=== PATIENT | male | born 1960 | race Caucasian/White ===

== ENCOUNTER 2018-05-04 15:08 | Observation (INO) ==
--- NOTE | 2018-05-04 17:20 | ED ---
HPI General Chief complaint: Chest Pain Stated complaint: Pateint states chest pain Time Seen by Provider: 05/04/18 16:59 History of Present Illness HPI narrative: 57-year-old male with a history of CVA x2, hypertension presents to the emergency department for evaluation of chest pain. Patient states he has had pain in his left anterior lower chest intermittently for the past 2 days. States that he has also had some slight shortness of breath. States he also has had some epigastric pain intermittently, states he has a history of gastric ulcers in the past. He does admit to drinking alcohol regularly. Denies drug use. He denies any history of heart disease or SD but states he used to see a novelty dipper when he lived in [place]. He states that he has lived here in [place] for the past year, just recently got insurance, is not established with a local physician. Denies any fever, chills, nausea, vomiting, lightheadedness, dizziness, weakness, abdominal pain, swelling of the extremities. No other complaints. Related Data Home Medications Medication Instructions Recorded Confirmed No Known Home Medications 05/04/18 05/04/18 Allergies Allergy/AdvReac Type Severity Reaction Status Date / Time No Known Allergies Allergy Verified 05/04/18 15:16 Review of Systems ROS: all other systems reviewed are negative PMFSH Medical History Medical History HBP (high blood pressure) (Acute) Heart attack (Acute) Stroke (Acute) Surgical History Surgical History History of abdominal surgery (Acute) Social History Social History Substance History: No History of Abuse Second Hand Smoke Exposure: Yes Smoking Status: Current every day smoker Tobacco Type: Cigarettes How Often Do You Have a Drink Containing Alcohol: 4 or more times a week Recent Travel in [facility] within the Last 8 Weeks: No Recent Out of Country Travel within the Last 8 Weeks: No Immunization History Tetanus Immunization: >5 Years Exam Narrative Exam Narrative: GENERAL: Well-nourished and well-developed pleasant patient in no acute distress who is nontoxic appearing. SKIN: Warm and dry. HEAD: Normocephalic and atraumatic. EYES: No injection, drainage, or hyphema noted. PERRLA. EOMI. ENT: No nasal drainage noted. Oropharynx is clear. NECK: Supple and the trachea is midline. CARDIOVASCULAR: Regular rate and rhythm. RESPIRATORY: Breath sounds are equal bilaterally with no accessory muscle use, wheezing, rhonchi, or crackles. GASTROINTESTINAL: Abdomen is soft, non-tender, and nondistended. No hepatosplenomegaly. MUSCULOSKELETAL: No obvious deformities, swelling, cyanosis, or ecchymosis is present throughout the upper and lower extremities. Patient has full range of motion without any signs of neurovascular compromise. Distal pulses are 2+ throughout. NEUROLOGICAL: Awake, alert, and oriented. Normal speech and gait. Cranial nerves are grossly intact. Course Initial Documented Vital Signs Temperature 98.7 F 05/04/18 15:10 Pulse Rate 98 H 05/04/18 15:10 Respiratory Rate 20 05/04/18 15:10 Blood Pressure 194/108 H 05/04/18 15:10 Pulse Oximetry 98 05/04/18 15:10 Last Documented Vital Signs Temperature 97.9 F 05/04/18 17:15 Pulse Rate 78 05/04/18 17:15 Respiratory Rate 17 05/04/18 17:55 Blood Pressure 141/88 H 05/04/18 17:15 Pulse Oximetry 97 05/04/18 17:15 Medical Decision Making [facility] Narrative Medical decision making narrative: 57-year-old male presents to the emergency department for evaluation of intermittent chest pain for 2 days. Patient is afebrile, blood pressure is elevated at 203/106. Otherwise vital signs are unremarkable. IV access is obtained, labs been drawn and sent. Patient is placed on cardiac telemetry and pulse oximetry monitoring. EKG shows sinus rhythm with no acute ST elevations or depressions, PVC noted. Patient administered nitro and aspirin. CBC is unremarkable. Coags are unremarkable. CMP is unremarkable. Troponin is less than 0.02. EtOH is less than 3. Chest x-ray is negative. Patient reassessed and states he is no longer having chest pain. Blood pressure improved to 165/90. Patient will be kept in chest pain center under observation. Medical Screen Exam Complete: Yes Emergency Medical Condition: Yes Differential Diagnosis Differential Diagnosis: Hypertensive urgency versus ACS versus pleurisy Lab Data Result diagrams: 05/04/18 17:10 05/04/18 17:10 Lab Results 05/04/18 05/04/18 05/04/18 Range/Units 17:10 17:10 17:10 WBC 9.9 (4.0-11.0) th/mm3 RBC 5.07 (4.50-5.90) mil/mm3 Hgb 17.0 (13.0-17.0) gm/dL Hct 50.4 (39.0-51.0) % MCV 99.3 (80.0-100.0) fL MCH 33.5 (27.0-34.0) pg MCHC 33.8 (32.0-36.0) % RDW 14.0 (11.6-17.2) % Plt Count 158 (150-450) th/mm3 MPV 9.6 (7.0-11.0) fL Neut % (Auto) 70.0 (16.0-70.0) % Lymph % (Auto) 20.0 (9.0-44.0) % [place] % (Auto) 7.1 (0.0-8.0) % Eos % (Auto) 2.5 (0.0-4.0) % Baso % (Auto) 0.4 (0.0-2.0) % Neut # (Auto) 7.0 (1.8-7.7) th/mm3 Lymph # (Auto) 2.0 (1.0-4.8) th/mm3 [place] # (Auto) 0.7 (0.0-0.9) th/mm3 Eos # (Auto) 0.2 (0.0-0.4) th/mm3 Baso # (Auto) 0.0 (0.0-0.2) th/mm3 WBC Differential . Differential Comment Auto diff final PT 9.9 (9.8-11.6) sec INR 1.0 Ratio APTT 28.3 (23.4-31.7) sec Sodium 138 (136-145) meq/L Potassium 4.3 (3.5-5.1) meq/L Chloride 100 (98-107) meq/L Carbon Dioxide 29.2 (21.0-32.0) meq/L Anion Gap 9 (5-15) meq/L BUN 22 H (7-18) mg/dL Creatinine 0.95 (0.60-1.30) mg/dL Estimated GFR 82 L (>89) mL/min Random Glucose 87 (74-106) mg/dL Calcium 8.8 (8.5-10.1) mg/dL Magnesium 2.2 (1.5-2.5) mg/dL Total Bilirubin 0.5 (0.2-1.0) mg/dL AST 20 (15-37) U/L ALT 16 (12-78) U/L Alkaline Phosphatase 92 (45-117) U/L Troponin I Less than 0.02 L (0.02-0.05) ng/mL Total Protein 7.8 (6.4-8.2) g/dL Albumin 3.7 (3.4-5.0) g/dL Lipase 73 (73-393) U/L Serum Alcohol Less than 3 (0-5) mg/dL 05/04/18 Range/Units 17:10 WBC (4.0-11.0) th/mm3 RBC (4.50-5.90) mil/mm3 Hgb (13.0-17.0) gm/dL Hct (39.0-51.0) % MCV (80.0-100.0) fL MCH (27.0-34.0) pg MCHC (32.0-36.0) % RDW (11.6-17.2) % Plt Count (150-450) th/mm3 MPV (7.0-11.0) fL Neut % (Auto) (16.0-70.0) % Lymph % (Auto) (9.0-44.0) % [place] % (Auto) (0.0-8.0) % Eos % (Auto) (0.0-4.0) % Baso % (Auto) (0.0-2.0) % Neut # (Auto) (1.8-7.7) th/mm3 Lymph # (Auto) (1.0-4.8) th/mm3 [place] # (Auto) (0.0-0.9) th/mm3 Eos # (Auto) (0.0-0.4) th/mm3 Baso # (Auto) (0.0-0.2) th/mm3 WBC Differential Differential Comment PT (9.8-11.6) sec INR Ratio APTT (23.4-31.7) sec Sodium (136-145) meq/L Potassium (3.5-5.1) meq/L Chloride (98-107) meq/L Carbon Dioxide (21.0-32.0) meq/L Anion Gap (5-15) meq/L BUN (7-18) mg/dL Creatinine (0.60-1.30) mg/dL Estimated GFR (>89) mL/min Random Glucose (74-106) mg/dL Calcium (8.5-10.1) mg/dL Magnesium (1.5-2.5) mg/dL Total Bilirubin (0.2-1.0) mg/dL AST (15-37) U/L ALT (12-78) U/L Alkaline Phosphatase (45-117) U/L Troponin I (0.02-0.05) ng/mL Total Protein (6.4-8.2) g/dL Albumin (3.4-5.0) g/dL Lipase Cancelled (73-393) U/L Serum Alcohol (0-5) mg/dL Imaging Data Radiologist's impression: Chest X-Ray 05/04/18 17:15 CONCLUSION: Negative examination. Discharge Plan Discharge Disposition Patient Disposition: 30 Still Patient Discharge Details Diagnosis: Chest pain Physicians Team ED Provider: Jamir Packer ED Midlevel Provider: Edith Miller Primary Care Provider: Primary Care Frances Zheng Rxs /Orders / Referrals /Forms Prescriptions: No Action No Known Home Medications RF: 0 Discharge Instructions Patient Printed Instructions: Chest Pain (ED) Discharge Interventions Interventions: Vital Signs Last Done: 05/04/18 19:16 Status ED Status: With Doctor
--- NOTE | 2018-05-04 17:36 | XR ---
EXAM DATE: 05/04/2018 5:34 PM EST AGE/SEX: 57 years / Male INDICATIONS: Left anterior lateral chest pain, denies injury CLINICAL DATA: This is the patient's initial encounter. Patient reports that signs and symptoms have been present for 3 days and indicates a pain score of 6/10. MEDICAL/SURGICAL HISTORY: None. None. COMPARISON: No prior exams available for comparison. FINDINGS: A single AP view of the chest demonstrates the lungs to be symmetrically aerated without evidence of mass, infiltrate or effusion. The cardiomediastinal contours are unremarkable. Osseous structures a re intact. CONCLUSION: Negative examination. Electronically signed by: Chaitanya Baker MD 05/04/2018 5:34 PM EST
[2018-05-04 18:08] LABS: Baso % (Auto) 0.4 % (0.0-2.0); Eos # (Auto) 0.2 th/mm3 (0.0-0.4); Eos % (Auto) 2.5 % (0.0-4.0); Hematocrit 50.4 % (39.0-51.0); Mean Corpuscular HGB Conc 33.8 % (32.0-36.0); Mean Corpuscular Hemoglobin 33.5 pg (27.0-34.0); Mean Corpuscular Volume 99.3 fL (80.0-100.0); Mean Platelet Volume 9.6 fL (7.0-11.0); Mono # (Auto) 0.7 th/mm3 (0.0-0.9); Mono % (Auto) 7.1 % (0.0-8.0); Platelet Count 158 th/mm3 (150-450); Red Blood Count 5.07 mil/mm3 (4.50-5.90); White Blood Count 9.9 th/mm3 (4.0-11.0)
[2018-05-04 18:19] LABS: Activated Partial Thrombo Time 28.3 sec (23.4-31.7); Prothrombin Time 9.9 sec (9.8-11.6)
[2018-05-04 18:34] LABS: Alkaline Phosphatase 92 U/L (45-117); Total Protein 7.8 g/dL (6.4-8.2)
[2018-05-04 18:39] LABS: Alanine Aminotransferase 16 U/L (12-78); Albumin 3.7 g/dL (3.4-5.0); Anion Gap 9 meq/L (5-15); Aspartate Aminotransferase 20 U/L (15-37); Blood Urea Nitrogen 22 mg/dL (7-18); Calcium 8.8 mg/dL (8.5-10.1); Carbon Dioxide 29.2 meq/L (21.0-32.0); Chloride 100 meq/L (98-107); Glomerular Filtration Rate 82 mL/min (>89); Glucose,Random 87 mg/dL (74-106); Lipase 73 U/L (73-393); Magnesium 2.2 mg/dL (1.5-2.5); Potassium 4.3 meq/L (3.5-5.1); Sodium 138 meq/L (136-145)
[2018-05-04 20:25] LABS: Amphetamine Screen,Urine Neg (Neg); Barbiturate Screen,Urine Neg (Neg); Cannabinoid Screen,Urine Neg (Neg); Cocaine Screen,Urine Neg (Neg)
[2018-05-04 20:30] LABS: Opiate Screen,Urine Neg (Neg)
[2018-05-04 21:09] LABS: Creatine Kinase 49 U/L (39-308)
[2018-05-04 23:56] LABS: Creatine Kinase 51 U/L (39-308)
--- NOTE | 2018-05-05 08:16 | P.HPCA ---
History of Present Illness Primary Care Physician: No Primary Care Physician Chief Complaint: Chest pain History of Present Illness: This is a 57-year-old male with history of prior CVA and hypertension that presents to ED with complaint of left-sided chest discomfort for 2 days. It has been intermittent. Last anywhere from 20-30 minutes at a time. Is occurred a few times. Denies nausea or diaphoresis. Has had times of shortness of breath with it. He has noted some wheezing but states that swelling not that uncommon. He continues to smoke cigarettes. Has seen a technology adoption manager in the past. States that 2 years ago he was referred to a technology adoption manager after having a CVA while in [place]. States that his cardiac workup was fine. States that the stroke affected his speech. Admits to noncompliance with medication. States he has blood pressure medicine and something for when he had a stroke but has not taken them. States he forgets. He states that his insurance has assigned him to a primary care physician but he has not followed them. Patient reports having a history of CVA 2 years ago affecting his speech. Hypertension but admits to not taking medication. Denies any knowledge of hyperlipidemia, diabetes, or CAD. States that his mother had an NV but he is not aware of how old she was when it occurred. Continues smoke about 1/2 pack of cigarettes for the past month or so but he was smoking about 1 pack of cigarettes daily for proximally 40 years. States he has had no alcohol for 1 month but prior to that was a heavy drinker. Denies illicit drug use. States he lives with friends. - Diagnosis (1) Chest pain (2) Tobacco abuse (3) History of CVA (cerebrovascular accident) (4) Hypertension Review of Systems General: Patient denies fevers, chills, and recent travel. HEENT: Patient denies headache, sore throat, difficulty swallowing. Cardiovascular: Has the chest discomfort as mentioned above. Denies sensation of heart beating rapidly or irregularly. No syncope. Denies diaphoresis Respiratory: Occasional shortness of breath. Has been wheezing. States that is not unusual. Denies inspirational chest discomfort. Denies coughing or hemoptysis. GI: Patient denies nausea, vomiting, diarrhea, abdominal pain, bloody stools. Musculoskeletal: Patient denies joint pain or edema. Denies calf pain or edema. Neurovascular: Patient denies numbness, tingling, weakness in extremities. Denies headache. Endocrine: Denies polyuria and polydipsia. Hematologic: Denies easy bruising. Skin: Denies rash or itching. PMFSH - History History Provided By: Patient - Medical History Medical History: Medical History (Last Updated 05/04/18 @ 17:17 by Nazia Beltran) HBP (high blood pressure) Heart attack Stroke - Surgical History Surgical History: Surgical History (Last Updated 05/04/18 @ 17:17 by Nazia Beltran) History of abdominal surgery - Tobacco History Second Hand Smoke Exposure: No Tobacco Use In Past 30 Days: Yes Smoking Status: Heavy tobacco smoker Tobacco Type: Cigarettes - Alcohol History How Often Do You Have a Drink Containing Alcohol: 4 or more times a week - Substance Use History Substance History: No History of Abuse - Travel History Recent Travel in the [facility] Within the Last 8 Weeks: No Recent Travel Out of the Country Within the Last 8 Weeks: No - Immunization History Tetanus Immunization: >5 Years Medications and Allergies Active Medications: Active Medications Albuterol (Duoneb Neb (Prn)) 1 ampul NEB Q4HR NEB PRN PRN Reason: SHORTNESS OF BREATH/WHEEZING Aspirin (Aspirin) 325 mg PO DAILY MOLLY Sodium Chloride (Ns Flush) 2 ml IV.FLUSH UNSCH PRN PRN Reason: FLUSH AFTER USING IV ACCESS Last Admin: 05/04/18 17:27 Dose: 2 ml Sodium Chloride (Ns Flush) 2 ml IV.FLUSH BID MOLLY Last Admin: 05/04/18 20:37 Dose: 2 ml Sodium Chloride (Ns Flush) 2 ml IV.FLUSH PRN PRN PRN Reason: FLUSH AFTER USING IV ACCESS Allergies Allergy/AdvReac Type Severity Reaction Status Date / Time No Known Allergies Allergy Verified 05/04/18 15:16 Home Medications Medication Instructions Recorded Confirmed Type No Known Home Medications 05/04/18 05/04/18 History Exam Vital signs: Vital Signs 05/04/18 15:10 05/04/18 15:16 05/04/18 17:15 Temperature 98.7 F 97.7 F 97.9 F Pulse Rate 98 H 86 78 Respiratory Rate 20 19 17 Blood Pressure 194/108 H 200/113 H 141/88 H Pulse Oximetry 98 99 97 05/04/18 17:30 05/04/18 17:45 05/04/18 17:50 Temperature Pulse Rate Respiratory Rate 17 17 16 Blood Pressure Pulse Oximetry 05/04/18 17:55 05/04/18 19:16 05/04/18 20:00 Temperature 98.0 F Pulse Rate 76 59 L Respiratory Rate 17 16 18 Blood Pressure 165/90 H 138/84 Pulse Oximetry 98 96 05/04/18 20:44 05/04/18 20:49 05/05/18 01:48 Temperature 97.9 F Pulse Rate 56 L Respiratory Rate 20 Blood Pressure 136/82 Pulse Oximetry 96 96 95 05/05/18 06:00 05/05/18 07:28 05/05/18 07:55 Temperature 98.1 F 98.2 F Pulse Rate 57 L 54 L 59 L Respiratory Rate 16 18 Blood Pressure 148/83 H 133/78 Pulse Oximetry 96 98 05/05/18 08:00 Temperature Pulse Rate Respiratory Rate Blood Pressure Pulse Oximetry 97 Intake & Output 05/04/18 05/05/18 05/05/18 18:59 06:59 18:59 Weight 71.214 kg Other: # Voids 1 Date of Last Bowel Movement 05/04/18 Narrative: GENERAL: This is a well-nourished, well-developed patient, in no apparent distress. Patient speaks in clear complete sentences. Patient is pleasant. HEENT: Head is atraumatic and normocephalic. Neck is supple without lymphadenopathy and trachea is midline. No JVD or carotid bruits. CARDIOVASCULAR: Regular rate and rhythm without murmurs, gallops, or rubs. RESPIRATORY: Expiratory wheezing bilateral bases. Breath sounds equal bilaterally. No rales or rhonchi. Chest wall is nontender. No use of accessory muscles. GASTROINTESTINAL: Abdomen is nontender, nondistended. Abdomen soft. No obvious pulsatile mass or bruit. No CVA tenderness. Strong femoral pulses bilaterally. Normal bowel sounds in all quadrants. MUSCULOSKELETAL: Patient is moving upper and lower extremities freely. No calf tenderness or edema, no Homans sign. Strong pulses in upper and lower extremities. NEUROLOGICAL: Patient is alert and oriented. Cranial nerves 2-12 are grossly intact. No focal deficits and speech is clear. SKIN: No rash and turgor is normal. Results 05/04/18 17:10 05/04/18 17:10 Cardiac Enzymes 1105/04/18 05/04/18 Range/Units 17:10 17:10 20:30 AST 20 (15-37) U/L Troponin I Less than 0.02 L Less than 0.02 L (0.02-0.05) ng/mL B-Natriuretic Peptide 13 (0-100) pg/mL 05/04/18 Range/Units 23:20 AST (15-37) U/L Troponin I Less than 0.02 L (0.02-0.05) ng/mL B-Natriuretic Peptide (0-100) pg/mL Coagulation 05/04/18 05/04/18 Range/Units 17:10 17:10 PT 9.9 (9.8-11.6) sec APTT 28.3 (23.4-31.7) sec B-Natriuretic Peptide 13 (0-100) pg/mL CBC 05/04/18 Range/Units 17:10 WBC 9.9 (4.0-11.0) th/mm3 RBC 5.07 (4.50-5.90) mil/mm3 Hgb 17.0 (13.0-17.0) gm/dL Hct 50.4 (39.0-51.0) % Plt Count 158 (150-450) th/mm3 Neut # (Auto) 7.0 (1.8-7.7) th/mm3 Lymph # (Auto) 2.0 (1.0-4.8) th/mm3 [place] # (Auto) 0.7 (0.0-0.9) th/mm3 Eos # (Auto) 0.2 (0.0-0.4) th/mm3 Baso # (Auto) 0.0 (0.0-0.2) th/mm3 Comprehensive Metabolic Panel 05/04/18 Range/Units 17:10 Sodium 138 (136-145) meq/L Potassium 4.3 (3.5-5.1) meq/L Chloride 100 (98-107) meq/L Carbon Dioxide 29.2 (21.0-32.0) meq/L BUN 22 H (7-18) mg/dL Creatinine 0.95 (0.60-1.30) mg/dL Calcium 8.8 (8.5-10.1) mg/dL AST 20 (15-37) U/L ALT 16 (12-78) U/L Alkaline Phosphatase 92 (45-117) U/L Total Protein 7.8 (6.4-8.2) g/dL Albumin 3.7 (3.4-5.0) g/dL Intake and Output 05/04/18 05/05/18 05/05/18 22:59 06:59 14:59 Other: # Voids 1 Date of Last Bowel Movement 05/04/18 Weight 71.214 kg - Imaging and Cardiology Imaging: Impressions Chest X-Ray 05/04/18 17:15 CONCLUSION: Negative examination. EKG interpretations - EKG EKG shows: sinus rhythm (EKGs are sinus rhythm without significant ST segment depressions or elevations.) Caprini VTE Risk Assessment Caprini VTE Risk Assessment: No/Low Risk (score <= 1) Caprini Risk Assessment Model: Point Value = 1 Point Value = 2 Point Value = 3 Point Value = 5 Age 41-60 Minor surgery BMI > 25 kg/m2 Swollen legs Varicose veins or History of unexplained or recurrent spontaneous Oral contraceptives or hormone replacement Sepsis (< 1 month) Serious lung disease, including pneumonia (< 1 month) Abnormal pulmonary function Acute myocardial infarction Congestive heart failure (< 1 month) History of inflammatory bowel disease Medical patient at bed rest Age 61-74 Arthroscopic surgery Major open surgery (> 45 min) Laparoscopic surgery (> 45 min) Malignancy Confined to bed (> 72 hours) Immobilizing plaster cast Central venous access Age >= 75 History of VTE Family history of VTE Factor V Leiden Prothrombin [id number] Lupus anticoagulant Anticardiolipin antibodies Elevated serum homocysteine Heparin-induced thrombocytopenia Other congenital or acquired thrombophilia Stroke (< 1 month) Elective arthroplasty Hip, pelvis, or leg fracture Acute spinal cord injury (< 1 month) Prophylaxis Regimen: Total Risk Factor Score Risk Level Prophylaxis Regimen 0-1 Low Early ambulation 2 Moderate Order ONE of the following: *Sequential Compression Device (SCD) *Heparin 5000 units SQ BID 3-4 Higher Order ONE of the following medications: *Heparin 5000 units SQ TID *Enoxaparin/Lovenox 40 mg SQ daily (WT < 150 kg, CrCl > 30 mL/min) *Enoxaparin/Lovenox 30 mg SQ daily (WT < 150 kg, CrCl > 10-29 mL/min) *Enoxaparin/Lovenox 30 mg SQ BID (WT < 150 kg, CrCl > 30 mL/min) AND/OR *Sequential Compression Device (SCD) 5 or more Highest Order ONE of the following medications: *Heparin 5000 units SQ TID (Preferred with Epidurals) *Enoxaparin/Lovenox 40 mg SQ daily (WT < 150 kg, CrCl > 30 mL/min) *Enoxaparin/Lovenox 30 mg SQ daily (WT < 150 kg, CrCl > 10-29 mL/min) *Enoxaparin/Lovenox 30 mg SQ BID (WT < 150 kg, CrCl > 30 mL/min) AND *Sequential Compression Device (SCD) Assessment and Plan - Assessment (1) Chest pain Code(s): R07.9 - Chest pain, unspecified Status: Acute (2) Tobacco abuse Code(s): Z72.0 - Tobacco use Status: Acute (3) History of CVA (cerebrovascular accident) Code(s): Z86.73 - Personal history of transient ischemic attack (TIA), and cerebral infarction without residual deficits Status: Acute (4) Hypertension Code(s): I10 - Essential (primary) hypertension Status: Acute - Plan * Chest pain: Patient has had serial cardiac enzymes and EKGs for ruling out purposes. He has been seen by Dr. Mercado of cardiology in the chest pain center. He will be given a breathing treatment. We will attempt an ETT and if that is nonischemic he will be discharged home with instructions to follow-up with PCP. He should obtain records from his prior physician in [place] when he does follow his PCP. Return to ED for interval issues. * Hypertension: Patient has not been on medications for a long time. Does not recall the names. His blood pressures have been okay. Needs to follow-up with physician for further evaluation and treatment. * Tobacco abuse: Patient has been counseled on the importance of smoking cessation. * Reported history of CVA: Aspirin. He needs to follow-up with his physician for further management. Discussed statins and other medication appropriate for prior CVA and other follow-up studies. Patient is stable at this time. He is agreeable to this plan. H&P: Quality - VTE Deep Vein Thrombosis/Pulmonary Embolism Present on Admission: No (1) Chest pain Qualifiers: Chest pain type: unspecified Qualified Code(s): R07.9 - Chest pain, unspecified
[2018-05-05] MEDS ORDERED: Aspirin 325 MG Tablet PO SCH (09:00)
[2018-05-05] MEDS ORDERED: Regadenoson Inj 0.4 MG/5 ML Syringe IV.PUSH ONE (11:05)
--- NOTE | 2018-05-05 12:30 | NM ---
EXAM DATE: 05/05/2018 12:23 PM EST AGE/SEX: 57 years / Male INDICATIONS:Angina. Myocardial infarction Left sided chest pain. CLINICAL DATA: This is the patient's initial encounter. Patient reports that signs and symptoms have been present for 1 day and indicates a pain score of 6/10. MEDICAL/SURGICAL HISTORY: Hypertension. Stroke. . Abdominal surgery. COMPARISON: No prior exams available for comparison. No external comparison. DOSE: 8.5 mCi Tc 99m Myoview at rest 26.1 mCi [id number] at stress 0.4 mg Lexiscan STRESS SYMPTOMS: Short of breath. EJECTION FRACTION: 37 % TECHNIQUE: The patient underwent pharmacologic stress with infusion of prescribed dose. Continuous ECG tracing was monitored during stress. Gated SPECT imaging was performed after stress and conventi onal SPECT imaging was performed at rest. The examination was performed on a SPECT/CT scanner, both attenuation and non-corrected datasets were reviewed. FINDINGS: The gated cine loop images demonstrate global hypokinesis with septal akinesis and left ventricular e jection fraction equaling 37%. The cardiac SPECT stress and rest images demonstrate no fixed or reversible defects to suggest infarc t or ischemia. RISK CATEGORY: Intermediate (1-3 % Annual Mortality Rate) CONCLUSION: 1. Global hypokinesis with septal akinesis and left ventricular ejection fraction equaling 37%. 2. No fixed or reversible defects to suggest infarct or ischemia. Electronically signed by: Shan Bell MD 05/05/2018 12:29 PM EST
--- NOTE | 2018-05-05 16:57 | ECG ---
Date Performed: 05/04/2018 Time Performed: 15:26:13 PTAGE: 57 years EKG: Sinus rhythm WITH OCCASIONAL VENTRICULAR PREMATURE COMPLEXES POSSIBLE RIGHT ATRIAL ENLARGEMENT LEFT ANTERIOR FASC ICULAR BLOCK ABNORMAL ECG NO PREVIOUS TRACING DOCTOR: Ellen Mercado Interpretating Date/Time 05/05/2018 16:57:07
--- NOTE | 2018-05-05 16:58 | ECG ---
Date Performed: 05/04/2018 Time Performed: 21:12:38 PTAGE: 57 years EKG: SINUS BRADYCARDIA MARKED LEFT AXIS DEVIATION ABNORMAL ECG Since PREVIOUS TRACING , no significant change noted DOCTOR: Ellen Mercado Interpretating Date/Time 05/05/2018 16:57:52
--- NOTE | 2018-05-05 16:58 | ECG ---
Date Performed: 05/04/2018 Time Performed: 23:09:21 PTAGE: 57 years EKG: SINUS BRADYCARDIA BORDERLINE LEFT AXIS DEVIATION BORDERLINE ECG Since PREVIOUS TRACING , no significant change noted DOCTOR: Ellen Mercado Interpretating Date/Time 05/05/2018 16:58:04
--- NOTE | 2018-05-05 17:00 | TR ---
Date Performed: 05/05/2018 Time Performed: 11:05:22 DOCTOR: Ellen Mercado DRUG LIST: CLINICAL HISTORY: REASON FOR TEST: REASON FOR ENDING: OBSERVATION: CONCLUSION: Lexiscan stress test was performed under standard four minute protocol. Radionuclid e was injected one minute prior to ending the test. No electrocardiographic abormalities were present to suggest ischemia. Nuclear imaging and interpretation are pending. COMMENTS: Lexiscan stress test was performed under standard four minute protocol. Radionuclide was injected one minute prior to ending the test. No electrocardiographic abormalities were present t o suggest ischemia. Nuclear imaging and interpretation are pending.
== END 2018-05-05 17:04 | disposition home or self-care (01) ==
LOC: NEPC 15:08 → NEDA 15:08 → NEPGCP 19:55
PROVIDERS: ADMIT Internal Medicine Cardiovascular Disease; ATTEND Internal Medicine Cardiovascular Disease
DX: Z87.11 Personal history of peptic ulcer disease; Z91.14 Patient's other noncompliance with medication regimen; F17.210 Nicotine dependence, cigarettes, uncomplicated; Z82.49 Family history of ischemic heart disease and other diseases of the circulatory system; R07.9 Chest pain, unspecified; I25.2 Old myocardial infarction; I10 Essential (primary) hypertension; R94.31 Abnormal electrocardiogram [ECG] [EKG]; Z86.73 Personal history of transient ischemic attack (TIA), and cerebral infarction without residual deficits